=== PATIENT | female | born 1985 | race Caucasian/White ===

== ENCOUNTER 2016-12-25 20:55 | Emergency (ER) | payer OTHER ==
[2015-05-16 22:09] VITALS: BMI 39.2
[~2016-12-25 20:55] MED LIST: HYDROCODON-ACE1 EAC7 PO; IBUPROFEN600 MG PO; PRENATAL COMPLE1 TAB PO
== END 2016-12-26 00:12 | disposition home or self-care (01) ==
LOC: D.ER 20:55
DX: O26.891 Other specified pregnancy related conditions, first trimester (principal); Z3A.00 Weeks of gestation of pregnancy not specified; R45.1 Restlessness and agitation

== ENCOUNTER 2017-05-12 07:50 | Inpatient (IN) | payer OTHER ==
[~2017-05-12] VITALS: Ht 170.2 cm; Wt 128.4 kg
--- NOTE | ~2017-05-12 | DS ---
PATIENT:NICOLE PORTILLO :83 MEDICAL RECORD: [id number] DISCHARGE SUMMARY ADMISSION DATE: 05/12/17 DISCHARGE DATE: 05/14/17 The patient was admitted on 05/12/2017. HISTORY: A 32-year-old G4, P1 at 35 weeks and 2 days, admitted for 2 days of worsening cough and shortness of breath. The patient was O positive, group B strep positive, rubella immune. The patient had a past surgical history significant for , D&C, and cerclage placement. The patient had no allergies. FAMILY HISTORY: Negative per the patient. SOCIAL HISTORY: The patient reported social history negative times 3. On initial assessment, the patient was afebrile. The patient was normotensive. Pulse ox was in the 95-97 range. ABG was performed and revealed an elevated AA gradient. CT scan was performed to rule out pulmonary embolus. ASSESSMENT AND PLAN: At admission; 1. Intrauterine at 35 weeks. 2. Cervical insufficiency managed at [facility]. 3. Likely bronchitis/early pneumonia. CT negative for pulmonary embolism. 4. History of previous . Plan at that time was to admit for antibiotics, ceftriaxone, azithromycin, supplemental oxygen as needed, breathing treatments per respiratory with daily CBC checks. Admit white blood cell count was 16.5. The patient improved overnight on hospital day #1. Ultrasound was performed with footling breech presentation. Placenta was anterior 3.8 cm from the internal os. Biophysical was performed and found to be 10/10. Discrepancy was noted between the ultrasound performed by the [facility]. I personally performed the ultrasound and found an JOSE ALBERTO of 14.3 with a max vertical pocket of 4.8, +2 for tone, +2 for fine motor, +2 for greater than 30 seconds respirations, +2 for reactive NST, and +2 for JOSE ALBERTO. NST was checked q.2 hours while on supplemental oxygen due to difficulty and the patient tracing due to body habitus, category 1 tracing. On the hospital day 2, the patient continued to improve with less coughing. Ceftriaxone and Zithromax was continued. The patient was afebrile overnight. wellbeing was reassuring. Bed nebs were continued. CBC was checked and improved white count. White count on hospital day #2 was down to 11.0. On hospital day #3, the patient had been afebrile for greater than 48 hours. White count as mentioned was down to 11. The patient was discharged home with amoxicillin and Zithromax and albuterol and the patient instructed to keep her appointment at [facility] on 05/15/2017. TRANSINT:[id number] Voice Confirmation ID: [id number] DOCUMENT ID: [id number] DISCHARGE SUMMARY REPORT [id number] NICOLE PORTILLO, LULU Handley MD at 1452 CC: [id number] DICTATION DATE: 06/05/17 0755 DEPARTMENT OF SOCIOLOGY CHAIR: 06/05/17 1223 DIS IN 05/14/17 [id number] [place] [address]
[2017-05-12 08:33] LABS: APPEARANCE CLEAR (CLEAR); BILIRUBIN NEGATIVE (NEGATIVE); COLOR STRAW (YELLOW); GLUCOSE NEGATIVE (NEGATIVE); KETONE NEGATIVE (NEGATIVE); NITRITE NEGATIVE (NEGATIVE); PROTEIN NEGATIVE (NEGATIVE); SPECIFIC GRAVITY 1.005 (1.005-1.020); UROBILINOGEN NORMAL (NORMAL)
[2017-05-12 10:24] LABS: BASOPHILS 0.1 % (0-2); EOSINOPHILS 0.7 % (0-7); HEMATOCRIT 35.2 % (36.0-48.0); HEMOGLOBIN 11.9 g/dL (12-16); IMMATURE GRANULOCYTES 0.2 % (0-5); LYMPHOCYTES 7.9 % (15-50); MCH 29.2 pg (26.0-34.0); MCHC 33.8 g/dL (31.0-37.0); MCV 86.3 fL (80.0-100.0); MEAN PLATELET VOLUME 10.6 fL (7.4-10.4); MONOCYTES 7.5 % (2-11); NEUTROPHILS 83.6 % (40-80); PLATELET COUNT 272 10x3/uL (130-400); RBC 4.08 10x6/uL (4.00-5.40); RDW 12.9 % (11.5-14.5); WBC 16.5 10x3/uL (4.8-10.8)
[2017-05-12 10:37] LABS: ALBUMIN 2.7 g/dL (3.4-5.0); ALKALINE PHOSPHATASE 154 U/L (46-116); ALT (SGPT) 22 U/L (10-68); BILIRUBIN - TOTAL 0.32 mg/dL (0.2-1.3); CALC OSMOLALITY 272 mosm/kg (275-300); CALCIUM 8.9 mg/dL (8.5-10.1); CARBON DIOXIDE 21.4 mmol/L (21.0-32.0); CHLORIDE - SERUM 105 mmol/L (98-107); CREATININE - SERUM 0.6 mg/dL (0.6-1.3); GLUCOSE 98 mg/dL (74-106); POTASSIUM - SERUM 3.8 mmol/L (3.5-5.1); PROTEIN - SERUM 6.5 g/dL (6.4-8.2); SODIUM 138 mmol/L (136-145); UREA NITROGEN 3 mg/dL (7-18); eGFR NON AFRICAN AMERICAN > 90 mL/min (90-120)
[2017-05-12 13:50] VITALS: BP 112/65; Ht 170.2 cm; Wt 128.4 kg
[2017-05-13] MEDS ORDERED: PROMETRIUM100 MG IM (07:31)
[2017-05-13 08:55] LABS: BASOPHILS 0.2 % (0-2); HEMATOCRIT 34.2 % (36.0-48.0); HEMOGLOBIN 11.5 g/dL (12-16); IMMATURE GRANULOCYTES 0.5 % (0-5); LYMPHOCYTES 11.5 % (15-50); MCH 29.2 pg (26.0-34.0); MCHC 33.6 g/dL (31.0-37.0); MCV 86.8 fL (80.0-100.0); MEAN PLATELET VOLUME 10.2 fL (7.4-10.4); MONOCYTES 8.3 % (2-11); NEUTROPHILS 78.5 % (40-80); PLATELET COUNT 263 10x3/uL (130-400); RBC 3.94 10x6/uL (4.00-5.40)
[2017-05-13 20:25] VITALS: BP 127/66
[2017-05-14 03:50] VITALS: BP 120/58
[2017-05-14] MEDS ORDERED: ZITHROMAX250 MG PO (18:06)
[2017-05-14] MEDS ORDERED: AMOXICILLIN500 M1 PO (18:07)
[2017-05-14] MEDS ORDERED: VOSPIRE ER8 MG (18:09)
== END 2017-05-14 18:30 | disposition home or self-care (01) | DRG 781 ==
LOC: D.LDO 07:50 → D.ER 07:50 → EDSTATUS 09:19 → D.LD 13:25
PROVIDERS: Family Medicine; Obstetrics & Gynecology
DX: O99.513 Diseases of the respiratory system complicating pregnancy, third trimester (principal); O34.33 Maternal care for cervical incompetence, third trimester; O99.820 Streptococcus B carrier state complicating pregnancy; O32.1XX0 Maternal care for breech presentation, not applicable or unspecified; Z3A.35 35 weeks gestation of pregnancy; O26.893 Other specified pregnancy related conditions, third trimester; R00.0 Tachycardia, unspecified